=== PATIENT | male | born 1960 | race American Indian/Alaskan Native ===

== ENCOUNTER 2017-04-24 20:55 | Inpatient (IN) | payer OTHER ==
[2017-04-24] MEDS ORDERED: GEODON IM STA (21:07)
[2017-04-24] MEDS ORDERED: GEODON IM ONE (21:08)
--- NOTE | 2017-04-24 21:08 | Emergency Department Report ---
ED General Adult HPI - General Chief complaint: Weakness Stated complaint: ALTERED MENTAL STATUS Time Seen by Provider: 04/24/17 21:01 Source: family, EMS (ems notes not available at time of chart dictation), RN notes reviewed Limitations: Altered Mental Status, Physical Limitation - History of Present Illness Initial comments: This is a 56-year-old male who was previously known to this provider. Primary care doctor at the [facility]. The patient is currently on hospice with [facility]; [phone] Patient is altered and is unable to provide history. History is obtained by speaking to EMS and the patient's daughter, Ms. Maryjo Espinoza; [phone] As per the patient started, the patient has a history of esophageal cancer. He is currently DO NOT RESUSCITATE, DO NOT INTUBATE. He is brought to the hospital by EMS for altered mental status since yesterday. The symptoms are constant. They do not have exacerbating or relieving factors. They do not radiate anywhere. The patient's daughter indicates the patient was last seen normal yesterday. As per verbal report from EMS, there is a concern of accidental overdose. EMS indicated that they thought the patient took too much of his morphine, they indicated that they found the patient laying supine on his bed, with an initial [place] Coma Scale of 11, normal fingerstick, with constricted pupils. EMS gave 1 mg of Narcan, which resulted in the patient becoming more lucid. Patient then became slightly more lucid. In the ER, the patient is altered, moving extremities, and cannot describe exacerbating or relieving factors. He is not able to contribute to history. As per daughter, she does not think that the patient overdosed, but she is not certain. Patient did complain of abdominal pain at one point, but he cannot further describe this or elaborate on it. -: days(s) Consistency: constant Improves with: other (per hpi) Worsens with: other (per hpi) Associated Symptoms: confusion - Related Data Allergies Allergy/AdvReac Type Severity Reaction Status Date / Time No Known Allergies Allergy Verified 04/24/17 22:33 ED Review of Systems ROS: Stated complaint: ALTERED MENTAL STATUS Other details as noted in HPI Comment: Unobtainable due to pts medical conditions ED Physical Exam - General Limitations: Altered Mental Status General appearance: in distress - Head Head exam: Present: atraumatic, normocephalic - Eye Eye exam: Present: normal appearance, EOMI, other (b/l arcus senilis). Absent: nystagmus - ENT ENT exam: Present: mucous membranes dry - Neck Neck exam: Present: normal inspection, full ROM - Respiratory Respiratory exam: Present: normal lung sounds bilaterally. Absent: respiratory distress - Cardiovascular Cardiovascular Exam: Present: normal rhythm, tachycardia, normal heart sounds. Absent: systolic murmur, diastolic murmur, rubs, gallop - GI/Abdominal GI/Abdominal exam: Present: soft, normal bowel sounds. Absent: distended, tenderness, guarding, rebound, rigid, pulsatile mass - Rectal Rectal exam: Present: normal inspection - exam: Present: normal inspection - Extremities Exam Extremities exam: Present: normal inspection, full ROM. Absent: pedal edema, calf tenderness - Back Exam Back exam: Present: normal inspection, full ROM. Absent: paraspinal tenderness , vertebral tenderness - Neurological Exam Neurological exam: Present: alert, altered, other (patient moving 4 extremities. Patient follows some commands but not all commands. No facial droop. The tongue is midline. Patient speaking in partial sentences. Phonating normally. No stridor. Cranial nerves and sensory exam limited secondary to patient's altered mental status) - Psychiatric Psychiatric exam: Present: normal affect, normal mood - Skin Skin exam: Present: warm, dry, intact, normal color. Absent: rash ED Course Vital Signs 04/24/17 04/24/17 04/24/17 21:06 21:15 21:22 Temperature 98.1 F Pulse Rate 112 H 106 H 124 H Respiratory 20 19 20 Rate Blood Pressure 152/110 122/80 O2 Sat by Pulse 97 Oximetry 04/24/17 04/24/17 04/24/17 21:29 21:31 21:45 Temperature Pulse Rate 122 H 115 H Respiratory 22 28 H 16 Rate Blood Pressure 142/119 149/98 O2 Sat by Pulse 96 Oximetry 04/24/17 04/24/17 04/24/17 22:00 22:06 22:32 Temperature Pulse Rate 119 H 122 H Respiratory 25 H Rate Blood Pressure 155/98 155/98 O2 Sat by Pulse 99 97 Oximetry 04/24/17 04/24/17 04/24/17 22:45 23:00 23:03 Temperature Pulse Rate 146 H 141 H Respiratory 32 H 34 H Rate Blood Pressure 137/65 138/75 138/75 O2 Sat by Pulse 99 99 99 Oximetry 04/24/17 04/24/17 04/24/17 23:15 23:30 23:45 Temperature Pulse Rate 135 H 128 H 125 H Respiratory 29 H 26 H 23 Rate Blood Pressure 138/94 142/95 142/95 O2 Sat by Pulse 99 98 Oximetry 04/25/17 04/25/17 04/25/17 00:01 00:15 00:30 Temperature Pulse Rate 123 H 120 H 124 H Respiratory 28 H 29 H 25 H Rate Blood Pressure 142/95 142/95 141/93 O2 Sat by Pulse 98 97 98 Oximetry 04/25/17 04/25/17 04/25/17 00:45 01:00 01:15 Temperature Pulse Rate 129 H 130 H 130 H Respiratory 31 H 25 H 23 Rate Blood Pressure 141/93 142/98 142/98 O2 Sat by Pulse 98 98 98 Oximetry 04/25/17 04/25/17 04/25/17 01:30 01:45 02:00 Temperature Pulse Rate 128 H 129 H 129 H Respiratory 27 H 21 24 Rate Blood Pressure 139/98 139/98 135/93 O2 Sat by Pulse 98 96 Oximetry 04/25/17 04/25/17 04/25/17 02:15 02:30 02:45 Temperature Pulse Rate 127 H 127 H 127 H Respiratory 26 H 29 H 26 H Rate Blood Pressure 135/93 141/98 141/98 O2 Sat by Pulse 98 97 97 Oximetry 04/25/17 04/25/17 04/25/17 03:00 03:15 03:30 Temperature Pulse Rate 125 H 127 H 126 H Respiratory 21 30 H 30 H Rate Blood Pressure 141/97 141/97 135/96 O2 Sat by Pulse 97 98 97 Oximetry 04/25/17 04/25/17 04/25/17 03:45 04:00 04:15 Temperature Pulse Rate 124 H 126 H 124 H Respiratory 26 H 27 H 26 H Rate Blood Pressure 135/96 147/99 135/96 O2 Sat by Pulse 98 97 98 Oximetry - Reevaluation(s) Reevaluation #1: 04/24/17 22:43 Differential diagnosis, including but not limited to: Intracranial injury, cervical spine injury, small bowel obstruction, pneumonia, urinary tract infection, polysubstance overdose, accidental overdose Assessment and plan: 56-year-old male with altered mental status of unknown exact onset and duration. Patient is therefore not a TPA candidate for endovascular candidate given his unknown last well time. Objectively speaking his rectal temperature was 98.1, motor exam is nonfocal, blood pressure stable, x-ray of the chest negative, laboratory studies suggest urinary tract infection, hypothyroidism, and hypokalemia. Extensive discussion had with the patient's daughter. She reiterates the patient is DO NOT RESUSCITATE, DO NOT INTUBATE. However she is amenable to medical therapy for fluids and antibiotics. She also gives verbal permission over the phone for chemical sedation if the patient requires it. High doubt intentional overdose, therefore I will not place the patient at 1013. CT scan of the brain, cervical spine, abdomen and pelvis interpretation is pending at this time. Reevaluation #2: 04/24/17 23:06 Laboratory studies indicate lactic acidosis, hypercalcemia. Additional IV fluids ordered. Calcitonin 4 units per kilogram ordered. IV Pamidronate is ordered. Hospital physician is paged to arrange admission Reevaluation #3: 04/24/17 23:32 CT scan of the brain and cervical spine demonstrate no acute disease. CT scan of abdomen and pelvis to demonstrate findings consistent with patient's prior history of abdominal surgeries and known history of cancer malignancy. Reevaluation #4: 04/24/17 23:40 I have contacted the patient's hospice and discussed the case with nurse Rafat Mishra They will get back to me. Reevaluation #5: 04/24/17 23:52 Case is presented to the Hospital physician, Dr. Rhodes, who accepted the patient to the medical service - Consultations Consultation #1: 04/24/17 23:54 d/w executive services administrator Jai Ochoa of hospice. she will revoke hospice, and they can be re instated once patient has been medically optimized ED Medical Decision Making - Lab Data Result diagrams: 04/24/17 21:23 04/24/17 21:32 Vital Signs 04/24/17 04/24/17 04/24/17 21:06 21:15 21:22 Temperature 98.1 F Pulse Rate 112 H 106 H 124 H Respiratory 20 19 20 Rate Blood Pressure 152/110 122/80 O2 Sat by Pulse 97 Oximetry 04/24/17 04/24/17 04/24/17 21:29 21:31 21:45 Temperature Pulse Rate 122 H 115 H Respiratory 22 28 H 16 Rate Blood Pressure 142/119 149/98 O2 Sat by Pulse 96 Oximetry 04/24/17 04/24/17 22:00 22:06 Temperature Pulse Rate 119 H 122 H Respiratory 25 H Rate Blood Pressure 155/98 O2 Sat by Pulse 99 Oximetry Lab Results 04/24/17 04/24/17 04/24/17 Range/Units 21:23 21:23 21:23 WBC 11.4 H (4.5-11.0) K/mm3 RBC 4.12 (3.65-5.03) M/mm3 Hgb 10.7 L (11.8-15.2) gm/dl Hct 33.2 L (35.5-45.6) % MCV 81 L (84-94) fl MCH 26 L (28-32) pg MCHC 32 (32-34) % RDW 17.9 H (13.2-15.2) % Plt Count 374 (140-440) K/mm3 Lymph % (Auto) 15.9 (13.4-35.0) % Alexander % (Auto) 8.3 H (0.0-7.3) % Eos % (Auto) 0.9 (0.0-4.3) % Baso % (Auto) 0.2 (0.0-1.8) % Lymph # 1.8 (1.2-5.4) K/mm3 Alexander # 0.9 H (0.0-0.8) K/mm3 Eos # 0.1 (0.0-0.4) K/mm3 Baso # 0.0 (0.0-0.1) K/mm3 Seg Neutrophils % 74.7 H (40.0-70.0) % Seg Neutrophils # 8.5 H (1.8-7.7) K/mm3 PT (12.2-14.9) Sec. INR (0.87-1.13) APTT (24.2-36.6) Sec. Sodium (137-145) mmol/L Potassium (3.6-5.0) mmol/L Chloride (98-107) mmol/L Carbon Dioxide (22-30) mmol/L Anion Gap mmol/L BUN (9-20) mg/dL Creatinine (0.8-1.5) mg/dL Estimated GFR ml/min BUN/Creatinine Ratio % Glucose (75-100) mg/dL Magnesium (1.7-2.3) mg/dL Total Bilirubin (0.1-1.2) mg/dL AST (5-40) units/L ALT (7-56) units/L Alkaline Phosphatase (35-129) units/L Ammonia 36.0 (25-60) umol/L Total Creatine Kinase (55-170) units/L Troponin T (0.00-0.029) ng/mL Total Protein (6.3-8.2) g/dL Albumin (3.9-5) g/dL Albumin/Globulin Ratio % TSH (0.270-4.200) mlU/mL Urine Color (Yellow) Urine Turbidity (Clear) Urine pH (5.0-7.0) Ur Specific Dix (1.003-1.030) Urine Protein (Negative) mg/dL Urine Glucose (UA) (Negative) mg/dL Urine Ketones (Negative) mg/dL Urine Blood (Negative) Urine Nitrite (Negative) Urine Bilirubin (Negative) Urine Urobilinogen (<2.0) mg/dL Ur Leukocyte Esterase (Negative) Urine WBC (Auto) (0.0-6.0) /HPF Urine RBC (Auto) (0.0-6.0) /HPF U Epithel Cells (Auto) (0-13.0) /HPF Urine Bacteria (Auto) (Negative) /HPF Hyaline Casts /LPF Urine Mucus /HPF Salicylates (2.8-20.0) mg/dL Urine Methadone Screen Acetaminophen < 15.0 (10.0-30.0) ug/mL Ur Barbiturates Screen Ur Phencyclidine Scrn Ur Amphetamines Screen U Benzodiazepines Scrn Urine Cocaine Screen U Marijuana (THC) Screen Plasma/Serum Alcohol (0-0.07) gm% 04/24/17 04/24/17 04/24/17 Range/Units 21:23 21:29 21:29 WBC (4.5-11.0) K/mm3 RBC (3.65-5.03) M/mm3 Hgb (11.8-15.2) gm/dl Hct (35.5-45.6) % MCV (84-94) fl MCH (28-32) pg MCHC (32-34) % RDW (13.2-15.2) % Plt Count (140-440) K/mm3 Lymph % (Auto) (13.4-35.0) % Alexander % (Auto) (0.0-7.3) % Eos % (Auto) (0.0-4.3) % Baso % (Auto) (0.0-1.8) % Lymph # (1.2-5.4) K/mm3 Alexander # (0.0-0.8) K/mm3 Eos # (0.0-0.4) K/mm3 Baso # (0.0-0.1) K/mm3 Seg Neutrophils % (40.0-70.0) % Seg Neutrophils # (1.8-7.7) K/mm3 PT (12.2-14.9) Sec. INR (0.87-1.13) APTT (24.2-36.6) Sec. Sodium (137-145) mmol/L Potassium (3.6-5.0) mmol/L Chloride (98-107) mmol/L Carbon Dioxide (22-30) mmol/L Anion Gap mmol/L BUN (9-20) mg/dL Creatinine (0.8-1.5) mg/dL Estimated GFR ml/min BUN/Creatinine Ratio % Glucose (75-100) mg/dL Magnesium 1.90 (1.7-2.3) mg/dL Total Bilirubin (0.1-1.2) mg/dL AST (5-40) units/L ALT (7-56) units/L Alkaline Phosphatase (35-129) units/L Ammonia (25-60) umol/L Total Creatine Kinase 153 (55-170) units/L Troponin T (0.00-0.029) ng/mL Total Protein (6.3-8.2) g/dL Albumin (3.9-5) g/dL Albumin/Globulin Ratio % TSH 5.240 H (0.270-4.200) mlU/mL Urine Color (Yellow) Urine Turbidity (Clear) Urine pH (5.0-7.0) Ur Specific Dix (1.003-1.030) Urine Protein (Negative) mg/dL Urine Glucose (UA) (Negative) mg/dL Urine Ketones (Negative) mg/dL Urine Blood (Negative) Urine Nitrite (Negative) Urine Bilirubin (Negative) Urine Urobilinogen (<2.0) mg/dL Ur Leukocyte Esterase (Negative) Urine WBC (Auto) (0.0-6.0) /HPF Urine RBC (Auto) (0.0-6.0) /HPF U Epithel Cells (Auto) (0-13.0) /HPF Urine Bacteria (Auto) (Negative) /HPF Hyaline Casts /LPF Urine Mucus /HPF Salicylates < 0.3 L (2.8-20.0) mg/dL Urine Methadone Screen Acetaminophen (10.0-30.0) ug/mL Ur Barbiturates Screen Ur Phencyclidine Scrn Ur Amphetamines Screen U Benzodiazepines Scrn Urine Cocaine Screen U Marijuana (THC) Screen Plasma/Serum Alcohol (0-0.07) gm% 04/24/17 04/24/17 04/24/17 Range/Units 21:30 21:32 21:32 WBC (4.5-11.0) K/mm3 RBC (3.65-5.03) M/mm3 Hgb (11.8-15.2) gm/dl Hct (35.5-45.6) % MCV (84-94) fl MCH (28-32) pg MCHC (32-34) % RDW (13.2-15.2) % Plt Count (140-440) K/mm3 Lymph % (Auto) (13.4-35.0) % Alexander % (Auto) (0.0-7.3) % Eos % (Auto) (0.0-4.3) % Baso % (Auto) (0.0-1.8) % Lymph # (1.2-5.4) K/mm3 Alexander # (0.0-0.8) K/mm3 Eos # (0.0-0.4) K/mm3 Baso # (0.0-0.1) K/mm3 Seg Neutrophils % (40.0-70.0) % Seg Neutrophils # (1.8-7.7) K/mm3 PT 16.2 H (12.2-14.9) Sec. INR 1.24 H (0.87-1.13) APTT 26.4 (24.2-36.6) Sec. Sodium 132 L (137-145) mmol/L Potassium 3.2 L (3.6-5.0) mmol/L Chloride 93.5 L (98-107) mmol/L Carbon Dioxide 15 L (22-30) mmol/L Anion Gap 27 mmol/L BUN 32 H (9-20) mg/dL Creatinine 1.4 (0.8-1.5) mg/dL Estimated GFR > 60 ml/min BUN/Creatinine Ratio 23 % Glucose 137 H (75-100) mg/dL Magnesium (1.7-2.3) mg/dL Total Bilirubin 1.60 H (0.1-1.2) mg/dL AST 37 (5-40) units/L ALT 25 (7-56) units/L Alkaline Phosphatase 568 H (35-129) units/L Ammonia (25-60) umol/L Total Creatine Kinase 151 (55-170) units/L Troponin T < 0.010 (0.00-0.029) ng/mL Total Protein 7.5 (6.3-8.2) g/dL Albumin 3.6 L (3.9-5) g/dL Albumin/Globulin Ratio 0.9 % TSH (0.270-4.200) mlU/mL Urine Color (Yellow) Urine Turbidity (Clear) Urine pH (5.0-7.0) Ur Specific Dix (1.003-1.030) Urine Protein (Negative) mg/dL Urine Glucose (UA) (Negative) mg/dL Urine Ketones (Negative) mg/dL Urine Blood (Negative) Urine Nitrite (Negative) Urine Bilirubin (Negative) Urine Urobilinogen (<2.0) mg/dL Ur Leukocyte Esterase (Negative) Urine WBC (Auto) (0.0-6.0) /HPF Urine RBC (Auto) (0.0-6.0) /HPF U Epithel Cells (Auto) (0-13.0) /HPF Urine Bacteria (Auto) (Negative) /HPF Hyaline Casts /LPF Urine Mucus /HPF Salicylates (2.8-20.0) mg/dL Urine Methadone Screen Acetaminophen (10.0-30.0) ug/mL Ur Barbiturates Screen Ur Phencyclidine Scrn Ur Amphetamines Screen U Benzodiazepines Scrn Urine Cocaine Screen U Marijuana (THC) Screen Plasma/Serum Alcohol < 0.01 (0-0.07) gm% 04/24/17 04/24/17 Range/Units 22:06 22:06 WBC (4.5-11.0) K/mm3 RBC (3.65-5.03) M/mm3 Hgb (11.8-15.2) gm/dl Hct (35.5-45.6) % MCV (84-94) fl MCH (28-32) pg MCHC (32-34) % RDW (13.2-15.2) % Plt Count (140-440) K/mm3 Lymph % (Auto) (13.4-35.0) % Alexander % (Auto) (0.0-7.3) % Eos % (Auto) (0.0-4.3) % Baso % (Auto) (0.0-1.8) % Lymph # (1.2-5.4) K/mm3 Alexander # (0.0-0.8) K/mm3 Eos # (0.0-0.4) K/mm3 Baso # (0.0-0.1) K/mm3 Seg Neutrophils % (40.0-70.0) % Seg Neutrophils # (1.8-7.7) K/mm3 PT (12.2-14.9) Sec. INR (0.87-1.13) APTT (24.2-36.6) Sec. Sodium (137-145) mmol/L Potassium (3.6-5.0) mmol/L Chloride (98-107) mmol/L Carbon Dioxide (22-30) mmol/L Anion Gap mmol/L BUN (9-20) mg/dL Creatinine (0.8-1.5) mg/dL Estimated GFR ml/min BUN/Creatinine Ratio % Glucose (75-100) mg/dL Magnesium (1.7-2.3) mg/dL Total Bilirubin (0.1-1.2) mg/dL AST (5-40) units/L ALT (7-56) units/L Alkaline Phosphatase (35-129) units/L Ammonia (25-60) umol/L Total Creatine Kinase (55-170) units/L Troponin T (0.00-0.029) ng/mL Total Protein (6.3-8.2) g/dL Albumin (3.9-5) g/dL Albumin/Globulin Ratio % TSH (0.270-4.200) mlU/mL Urine Color Ora (Yellow) Urine Turbidity Clear (Clear) Urine pH 5.0 (5.0-7.0) Ur Specific Dix 1.021 (1.003-1.030) Urine Protein 100 mg/dl (Negative) mg/dL Urine Glucose (UA) Neg (Negative) mg/dL Urine Ketones Tr (Negative) mg/dL Urine Blood Sm (Negative) Urine Nitrite Neg (Negative) Urine Bilirubin Neg (Negative) Urine Urobilinogen 4.0 (<2.0) mg/dL Ur Leukocyte Esterase Neg (Negative) Urine WBC (Auto) 26.0 H (0.0-6.0) /HPF Urine RBC (Auto) 20.0 (0.0-6.0) /HPF U Epithel Cells (Auto) 1.0 (0-13.0) /HPF Urine Bacteria (Auto) 3+ (Negative) /HPF Hyaline Casts 3 /LPF Urine Mucus Few /HPF Salicylates (2.8-20.0) mg/dL Urine Methadone Screen Presumptive negative Acetaminophen (10.0-30.0) ug/mL Ur Barbiturates Screen Presumptive negative Ur Phencyclidine Scrn Presumptive negative Ur Amphetamines Screen Presumptive negative U Benzodiazepines Scrn Presumptive negative Urine Cocaine Screen Presumptive negative U Marijuana (THC) Screen Presumptive negative Plasma/Serum Alcohol (0-0.07) gm% - EKG Data -: EKG Interpreted by Me - EKG Data 04/24/17 22:45 Sinus tachycardia, 120 bpm, normal axis, QTC within normal limits, nonspecific ST depression, abnormal EKG, no prior for comparison, patient is not endorsing chest pain, therefore not morphologically consistent with ST elevation myocardial infarction - Radiology Data Radiology results: pending interpreted by me: X-ray of the chest negative. Right-sided thoracic wall port is noted. Right lower lobe atelectasis is noted. Critical care attestation.: If time is entered above; I have spent that time in minutes in the direct care of this critically ill patient, excluding procedure time. ED Disposition Clinical Impression: UTI (urinary tract infection), Encephalopathy, Hypercalcemia Disposition: OP ADMIT IP TO THIS HOSP Is pt being admited?: Yes Condition: Fair Referrals: PRIMARY CARE, [Primary Care Provider] - 3-5 Days
[2017-04-24] MEDS ORDERED: ZOFRAN ONE (21:43)
[2017-04-24] MEDS ORDERED: ZOFRAN IV ONE (21:46)
[2017-04-24 21:54] LABS: INR 1.24 (0.87-1.13); Partial Thromboplastin Time 26.4 Sec. (24.2-36.6)
[2017-04-24 22:02] LABS: Hematocrit 33.2 % (35.5-45.6); Hemoglobin 10.7 gm/dl (11.8-15.2); Mean Corpuscular HGB Conc 32 % (32-34); Mean Corpuscular Hemoglobin 26 pg (28-32); Mean Corpuscular Volume 81 fl (84-94); Red Blood Count 4.12 M/mm3 (3.65-5.03); White Blood Count 11.4 K/mm3 (4.5-11.0)
[2017-04-24 22:03] LABS: Basophils % (Auto) 0.2 % (0.0-1.8); Eosinophils % (Auto) 0.9 % (0.0-4.3); Platelet Count 374 K/mm3 (140-440); Red Cell Distribution Width 17.9 % (13.2-15.2)
[2017-04-24 22:09] LABS: Magnesium 1.9 mg/dL (1.7-2.3)
[2017-04-24 22:10] LABS: Alanine Aminotransferase 25 units/L (7-56); Albumin 3.6 g/dL (3.9-5); Albumin/Globulin Ratio 0.9 %; Alkaline Phosphatase 568 units/L (35-129); Anion Gap 27 mmol/L; BUN/Creatinine Ratio 23; Blood Urea Nitrogen 32 mg/dL (9-20); Carbon Dioxide 15 mmol/L (22-30); Chloride 93.5 mmol/L (98-107); Creatine Kinase 151 units/L (55-170); Glucose 137 mg/dL (75-100); Potassium 3.2 mmol/L (3.6-5.0); Sodium 132 mmol/L (137-145); Total Protein 7.5 g/dL (6.3-8.2)
[2017-04-24 22:15] LABS: Urine Drugs of Abuse Note Disclamer
[2017-04-24] MEDS ORDERED: ATIVAN IV ONE (22:18)
[2017-04-24] MEDS ORDERED: ATIVAN ONE (22:21)
[2017-04-24 22:29] LABS: Bacteria,Urine 3+ /HPF (Negative); Bilirubin,Urine NEG (Negative); Blood,Urine SM (Negative); Ketones,Urine TR mg/dL (Negative); Leukocyte Esterase,Urine NEG (Negative); Mucus,Urine FEW /HPF; Nitrite,Urine NEG (Negative)
--- NOTE | 2017-04-24 22:35 | Cat Scan Report ---
FINAL REPORT PROCEDURE: CT HEAD/BRAIN WO CON TECHNIQUE: Computerized tomography of the head was performed without contrast material. HISTORY: Altered Mental Status COMPARISON: No prior studies are available for comparison. FINDINGS: Image quality is degraded by motion artifact. The examination was repeated. Brain: Brain density appears normal. No evidence of intracranial hemorrhage. No parenchymal hemorrhage, mass lesions or mass effect are seen. No abnormal extraxial fluid collects or masses are seen. Ventricles: Ventricles are normal size and are midline. Bone Windows: No evidence of skull fracture. Paranasal sinuses: Minimal mucosal thickening seen inferiorly laterally right maxillary sinus. Visualized portions of the paranasal sinuses otherwise appear clear. Mastoid air cells: Clear IMPRESSION: Limited study due to motion artifact. No acute abnormalities are identified. If symptoms persist or worsen consider follow-up CT scan or MRI for further evaluation.
[2017-04-24] MEDS ORDERED: NACL 0.9% 1000 ML 1,000 ML IV ONE ×2 (22:38→23:02)
[2017-04-24] MEDS ORDERED: ROCEPHIN/NS 1 GM/50 ML 1 GM/50 ML BAG IV ONE (22:38)
[2017-04-24] MEDS ORDERED: cefTRIAXone 1 GM in NACL 0.9% 20 ML IV ONE (22:45)
--- NOTE | 2017-04-24 22:50 | Cat Scan Report ---
FINAL REPORT PROCEDURE: CT CERVICAL SPINE WO CON TECHNIQUE: Computerized tomography of the cervical spine was performed from the skull base to T1 without contrast material. HISTORY: Altered mental status. COMPARISON: No prior studies are available for comparison. FINDINGS: No fracture or subluxation is visualized. The prevertebral soft tissues appear normal. Posterior elements are intact C1-2: No significant abnormality. C2-3: No significant abnormality. C3-C4: No significant abnormality. C4-C5: The disc space is narrowed. Small anterior posterior osteophytic spurs are visualized. The posterior osteophytic spurs are visualized overlying mild disc bulge without focal disc herniation or spinal stenosis. Neural foramina appear adequate. C5-C6: Disc space narrowing visualized. Anterior posterior osteophytic spurring visualized. Posterior osteophytic spurs overlie a mild disc bulge without focal disc herniation or spinal stenosis. The neural foramina appear adequate.. C6-C7: Disc space narrowing visualized. Anterior posterior osteophytic spurring visualized overlying a mild disc bulge without focal disc herniation or spinal stenosis. Neural foramina appear adequate. C6-7: No significant abnormality. C7-T1: No significant abnormality. Other: No additional findings. IMPRESSION: Degenerative disc disease C4-C5 through C6-C7 as described. No focal disc herniation or spinal stenosis visualized. No evidence of fracture or subluxation..
[2017-04-24 23:00] LABS: Calcium > 13.0 mg/dL (8.4-10.2)
[2017-04-24] MEDS ORDERED: AREDIA 60 MG in NACL 0.9% 1000 ML 1,000 ML IV ONE (23:04)
--- NOTE | 2017-04-24 23:23 | Cat Scan Report ---
FINAL REPORT PROCEDURE: CT ABDOMEN PELVIS WO CON TECHNIQUE: Computerized axial tomography of the abdomen and pelvis was performed without intravenous contrast. This study is performed without intravascular contrast material and its sensitivity for abdominal and pelvic pathology, including neoplasms, inflammation, abscess, free fluid, thrombosis, arterial dissection and infarction, is reduced compared with a contrast enhanced study. HISTORY: abd pain COMPARISON: No prior studies are available for comparison. FINDINGS: Lower Lung montes: Bands of increased density seen in the right lung base suggesting atelectasis. No effusions are seen. Upper Abdomen: This exam is limited. There was no IV contrast given. There appear to be very large heterogeneous low-density masses in the right and left lobes of the liver, on the left measuring up to 11.0 x 14.0 centimeter and in the right lobe of the liver measuring 6.2 x 7.5 centimeters. There may be additional lesions present. Primary malignancy in the liver with daughter lesions may be present versus metastatic disease to the liver. Gallbladder showed no focal abnormalities. The intrahepatic ducts are not distended. Adrenal glands are mildly diffusely prominent and minimally nodular. I cannot exclude hyperplasia. The pancreas showed no focal abnormalities however posterior to the stomach and superior to the pancreas there is an oval nodular density seen measuring 2.5 x 2.9 centimeter on axial image 47 series 3 suggesting an enlarged lymph node or soft tissue mass in the retroperitoneum. The spleen does not appear to be enlarged. Kidneys, Ureters and Urinary bladder: Kidneys and ureter show no focal abnormalities. Urinary bladder is only partially filled and difficult to characterize. No gross abnormality is seen. Retroperitoneum: Atherosclerotic changes are seen in the abdominal aorta. No aneurysm is visualized. Nonspecific subcentimeter lymph nodes are seen in the retroperitoneum. No pathologically enlarged lymph nodes are identified. Bowel: There is an enteric suture line and a loop of small bowel in the mid abdomen. There is no evidence of bowel obstruction or ascites. No free intraperitoneal gas is visualized. Other: No acute bony abnormalities are visualized. Degenerative changes are visualized in the lumbar spine. IMPRESSION: Large heterogeneous masses with heterogeneous decreased density seen in the liver suggesting primary neoplasm of the liver with metastasis to the adjacent liver versus metastatic disease to the liver. No ascites is visualized. Postsurgical changes seen involving a loop of small bowel. No evidence of bowel obstruction. Bands of atelectasis visualized in the right lung base. Possible soft tissue mass or large lymph node from metastatic disease visualized posterior to the stomach and superior to the pancreas please see above image reference. Contrast-enhanced CT scan would be helpful for further characterization of these abnormalities.
[2017-04-24] MEDS: KCL 10 MEQ in NACL 0.9% 100 ML IV SCH (23:41)
[2017-04-24] MEDS: KCL 10MEQ/100ML 10 MEQ/100 ML BAG IV SCH (23:41)
[2017-04-24] MEDS ORDERED: MIACALCIN IM ONE (23:45)
[2017-04-25] MEDS: KCL 10 MEQ in NACL 0.9% 100 ML IV SCH (00:39)
[2017-04-25] MEDS: KCL 10MEQ/100ML 10 MEQ/100 ML BAG IV SCH (00:39)
--- NOTE | 2017-04-25 06:36 | History and Physical Report ---
History of Present Illness Chief complaint: confusion, weakness History of present illness: 56 YO Male with currently on Hospice service for Esophageal Cancer, Severe Malnutrition. Pt is DNR. Pt is unable to provide history, but history is taken from daughter over the phone. per daughter, pt had become increasingly confused and weak over the past 3 days, with worsening symptoms overnight. Pt was found by daughter to be more confused today. EMS was notified. Pt was found to be lethargic on exam and was treated with Narcan 1mg, with mild improvement in symptoms, and transported to [facility] for evaluation. Pt seen and evaluated in ED and found to have evidence of sepsis, and hypercalcemia. Pt has poor prognosis. Pt status discussed with daughter. Awaiting hospice revocation. Pt daughter states that she is unable to care for patient at home due to her job, and her current hospice company does not have any vacant beds in their inpatient facility. Hospice service notified. Pending receipt of revocation form so patient can be admitted for further care, if daughter decides. Pt daughter states that she has to notify other family members to get their input. The patient is currently on hospice with [facility]; [phone]. patient's daughter: Ms. Maryjo Espinoza; [phone] Past History Past Medical History: cancer, other (malnutrition) Past Surgical History: No surgical history (Unable to Obtain) Social history: single, lives with family. denies: smoking, alcohol abuse, prescription drug abuse Family history: no significant family history (reviewed) Medications and Allergies Allergies Allergy/AdvReac Type Severity Reaction Status Date / Time No Known Allergies Allergy Verified 04/24/17 22:33 Active Meds: Active Medications Pamidronate Disodium 60 mg/ (Sodium Chloride) 1,006.6667 mls @ 100 mls/hr IV ONCE.ED ONE Stop: 04/25/17 09:07 Last Admin: 04/25/17 00:19 Dose: 100 mls/hr Review of Systems ROS unobtainable: due to mental status Exam - Constitutional Vitals: Temp Pulse Resp BP Pulse Ox 98.1 F 120 H 19 141/100 98 04/24/17 21:22 04/25/17 06:15 04/25/17 06:15 04/25/17 06:15 04/25/17 06:15 General appearance: Present: severe distress - EENT Eyes: Present: PERRL ENT: hearing intact, clear oral mucosa - Neck Neck: Present: supple, normal ROM - Respiratory Respiratory effort: labored Respiratory: bilateral: diminished - Cardiovascular Heart Sounds: Present: S1 & S2. Absent: rub, click - Extremities Extremities: pulses symmetrical, No edema Peripheral Pulses: within normal limits - Abdominal General gastrointestinal: Present: soft, non-tender, non-distended, normal bowel sounds Male genitourinary: Present: normal - Integumentary Integumentary: Present: clear, dry, decreased turgor - Musculoskeletal Musculoskeletal: generalized weakness - Psychiatric Psychiatric: no intact judgment & insight, no memory intact - Neurologic Neurologic: no gait normal Results - Labs CBC & Chem 7: 04/24/17 21:23 04/24/17 21:32 Labs: Abnormal lab results 04/24/17 04/24/17 04/24/17 Range/Units 21:23 21:23 21:29 WBC 11.4 H (4.5-11.0) K/mm3 Hgb 10.7 L (11.8-15.2) gm/dl Hct 33.2 L (35.5-45.6) % MCV 81 L (84-94) fl MCH 26 L (28-32) pg RDW 17.9 H (13.2-15.2) % [place] % (Auto) 8.3 H (0.0-7.3) % [place] # 0.9 H (0.0-0.8) K/mm3 Seg Neutrophils % 74.7 H (40.0-70.0) % Seg Neutrophils # 8.5 H (1.8-7.7) K/mm3 PT (12.2-14.9) Sec. INR (0.87-1.13) Sodium (137-145) mmol/L Potassium (3.6-5.0) mmol/L Chloride (98-107) mmol/L Carbon Dioxide (22-30) mmol/L BUN (9-20) mg/dL Glucose (75-100) mg/dL Lactic Acid 4.30 H* (0.7-2.0) mmol/L Calcium (8.4-10.2) mg/dL Total Bilirubin (0.1-1.2) mg/dL Alkaline Phosphatase (35-129) units/L Albumin (3.9-5) g/dL TSH 5.240 H (0.270-4.200) mlU/mL Urine WBC (Auto) (0.0-6.0) /HPF Salicylates (2.8-20.0) mg/dL 04/24/17 04/24/17 04/24/17 Range/Units 21:29 21:32 21:32 WBC (4.5-11.0) K/mm3 Hgb (11.8-15.2) gm/dl Hct (35.5-45.6) % MCV (84-94) fl MCH (28-32) pg RDW (13.2-15.2) % [place] % (Auto) (0.0-7.3) % [place] # (0.0-0.8) K/mm3 Seg Neutrophils % (40.0-70.0) % Seg Neutrophils # (1.8-7.7) K/mm3 PT 16.2 H (12.2-14.9) Sec. INR 1.24 H (0.87-1.13) Sodium 132 L (137-145) mmol/L Potassium 3.2 L (3.6-5.0) mmol/L Chloride 93.5 L (98-107) mmol/L Carbon Dioxide 15 L (22-30) mmol/L BUN 32 H (9-20) mg/dL Glucose 137 H (75-100) mg/dL Lactic Acid (0.7-2.0) mmol/L Calcium > 13.0 H* (8.4-10.2) mg/dL Total Bilirubin 1.60 H (0.1-1.2) mg/dL Alkaline Phosphatase 568 H (35-129) units/L Albumin 3.6 L (3.9-5) g/dL TSH (0.270-4.200) mlU/mL Urine WBC (Auto) (0.0-6.0) /HPF Salicylates < 0.3 L (2.8-20.0) mg/dL 04/24/17 Range/Units 22:06 WBC (4.5-11.0) K/mm3 Hgb (11.8-15.2) gm/dl Hct (35.5-45.6) % MCV (84-94) fl MCH (28-32) pg RDW (13.2-15.2) % [place] % (Auto) (0.0-7.3) % [place] # (0.0-0.8) K/mm3 Seg Neutrophils % (40.0-70.0) % Seg Neutrophils # (1.8-7.7) K/mm3 PT (12.2-14.9) Sec. INR (0.87-1.13) Sodium (137-145) mmol/L Potassium (3.6-5.0) mmol/L Chloride (98-107) mmol/L Carbon Dioxide (22-30) mmol/L BUN (9-20) mg/dL Glucose (75-100) mg/dL Lactic Acid (0.7-2.0) mmol/L Calcium (8.4-10.2) mg/dL Total Bilirubin (0.1-1.2) mg/dL Alkaline Phosphatase (35-129) units/L Albumin (3.9-5) g/dL TSH (0.270-4.200) mlU/mL Urine WBC (Auto) 26.0 H (0.0-6.0) /HPF Salicylates (2.8-20.0) mg/dL Assessment and Plan - Patient Problems (1) Sepsis Current Visit: Yes Status: Acute Plan to address problem: IV abx, IVF, supportive care, blood cultures, urinalysis, monitor uop q shift. Poor prognosis discussed with daughter. Recommend discharge to hospice, but hospice does not have inpatient bed at this time, and patient daughter is unable to care for patient at home at this time. (2) Esophageal cancer Current Visit: Yes Status: Acute Plan to address problem: Pt currently on hospice service. Hospice service notified. Awaiting family decision, and open bed at hospice facility. Pain control, supportive care. (3) Severe malnutrition Current Visit: Yes Status: Acute Plan to address problem: Encourage oral intake when awake and alert only. (4) Encephalopathy Current Visit: Yes Status: Acute Plan to address problem: Toxic encephalopathy, supportie care, pain control. (5) DVT prophylaxis Current Visit: Yes Status: Acute
[2017-04-25] MEDS: MORPHINE IV PRN ×3 (06:56→18:19)
[2017-04-25] MEDS ORDERED: ZOFRAN IV PRN (07:11)
[2017-04-25] MEDS ORDERED: MILK OF MAGNESIA PO PRN (07:11)
[2017-04-25] MEDS ORDERED: TYLENOL PO PRN (07:11)
[2017-04-25] MEDS ORDERED: DULCOLAX PR PRN (07:11)
[2017-04-25] MEDS ORDERED: NACL 0.9% 1000 ML IV ONE (07:13)
[2017-04-25] MEDS ORDERED: VANCOMYCIN VIAL IV ONE (07:13)
[2017-04-25] MEDS ORDERED: VANCOMYCIN 1,250 MG in NACL 0.9% 250ML 250 ML IV SCH (08:00)
[2017-04-25] MEDS ORDERED: VANCOMYCIN PHARMACY TO DOSE IV SCH (08:00)
--- NOTE | 2017-04-25 10:22 | XRay Report ---
PORTABLE CHEST INDICATION: Altered mental status. COMPARISON: None similar at this institution. FINDINGS: Portable, frontal chest radiograph demonstrates atelectatic band at the right lung base. Approximately 2.6 cm right suprahilar nodule/mass. Right chest port tip in upper aspect of the right atrium. Normal cardiomediastinal silhouette. Unremarkable remainder lungs without significant pleural effusions or CHF. EKG leads. Slight bony degenerative changes. CONCLUSION: Right basilar atelectasis and right suprahilar mass in this patient with right-sided chest port, as described. Please correlate. Thank you for the opportunity to participate in this patient's care.
[2017-04-25] MEDS: ZOSYN/NS 4.5GM/100ML 4.5 GM/100 ML VIAL IV SCH ×2 (10:30→23:07)
[2017-04-25] MEDS ORDERED: D5/0.45NS 1,000 ML IV SCH ×2 (18:00)
[2017-04-26] MEDS: ZOSYN/NS 4.5GM/100ML 4.5 GM/100 ML VIAL IV SCH ×3 (05:44→21:13)
[2017-04-26] MEDS: VANCOMYCIN/NS 1 GM/250 ML 1 GM/250 ML BAG IV SCH (08:39)
[2017-04-26] MEDS: MORPHINE IV PRN ×2 (09:22→12:41)
--- NOTE | 2017-04-26 12:32 | Progress Note ---
Assessment and Plan Assessment and plan: Sepsis -Agent is being managed according to sepsis protocol with IV antibiotics and fluids Esophageal cancer - Patient was on hospice care, and the daughter said she is not able to take care of him so he may need inpatient hospice - Hospice care going to evaluate him Malnutrition - Nutrition consult, speech evaluation Acute metabolic encephalopathy - Supportive care, treat his underlying condition DVT prophylaxis -Lovenox Disposition - Continue inpatient care for the treatment of sepsis History Interval history: Patient was seen and evaluated this morning, patient is still confused. He said he has pain all over. He said he wants to Pee. The patient is on diaper per the nurse he has urine this morning and diaper was changed. Hospitalist Physical - Physical exam Narrative exam: Not in cardiopulmonary distress. The patient is cachectic and chronically sick looking. Vital signs as documented. Head exam is unremarkable. No scleral icterus . Neck is without jugular venous distension, thyromegaly, or carotid bruits. Lungs are clear to auscultation. Cardiac exam reveals regular rate and Rhythm. First and second heart sounds normal. No murmurs, rubs or gallops. Abdominal exam reveals normal bowel sounds, no masses, no organomegaly and no aortic enlargement. Extremities are nonedematous and both femoral and pedal pulses are normal. SENIOR ACCOUNT DIRECTOR: Confused. - Constitutional Vitals: Temp Pulse Resp BP Pulse Ox 98.5 F 117 H 19 139/99 98 04/26/17 07:07 04/26/17 07:07 04/26/17 07:07 04/26/17 07:07 04/26/17 07:07 General appearance: Present: severe distress Results - Labs CBC & Chem 7: 04/24/17 21:23 04/24/17 21:32 Labs: Laboratory Last Values WBC 11.4 K/mm3 (4.5-11.0) H 04/24/17 21:23 RBC 4.12 M/mm3 (3.65-5.03) 04/24/17 21:23 Hgb 10.7 gm/dl (11.8-15.2) L 04/24/17 21:23 Hct 33.2 % (35.5-45.6) L 04/24/17 21:23 MCV 81 fl (84-94) L 04/24/17 21:23 MCH 26 pg (28-32) L 04/24/17 21:23 MCHC 32 % (32-34) 04/24/17 21:23 RDW 17.9 % (13.2-15.2) H 04/24/17 21:23 Plt Count 374 K/mm3 (140-440) 04/24/17 21:23 Lymph % (Auto) 15.9 % (13.4-35.0) 04/24/17 21:23 [place] % (Auto) 8.3 % (0.0-7.3) H 04/24/17 21:23 Eos % (Auto) 0.9 % (0.0-4.3) 04/24/17 21:23 Baso % (Auto) 0.2 % (0.0-1.8) 04/24/17 21: Lymph # 1.8 K/mm3 (1.2-5.4) 04/24/17 21:23 [place] # 0.9 K/mm3 (0.0-0.8) H 04/24/17 21:23 Eos # 0.1 K/mm3 (0.0-0.4) 04/24/17 21:23 Baso # 0.0 K/mm3 (0.0-0.1) 04/24/17 21:23 Seg Neutrophils % 74.7 % (40.0-70.0) H 04/24/17 21:23 Seg Neutrophils # 8.5 K/mm3 (1.8-7.7) H 04/24/17 21:23 PT 16.2 Sec. (12.2-14.9) H 04/24/17 21:32 INR 1.24 (0.87-1.13) H 04/24/17 21:32 APTT 26.4 Sec. (24.2-36.6) 04/24/17 21:32 Sodium 132 mmol/L (137-145) L 04/24/17 21:32 Potassium 3.2 mmol/L (3.6-5.0) L 04/24/17 21:32 Chloride 93.5 mmol/L (98-107) L 04/24/17 21:32 Carbon Dioxide 15 mmol/L (22-30) L 04/24/17 21:32 Anion Gap 27 mmol/L 04/24/17 21:32 BUN 32 mg/dL (9-20) H 04/24/17 21:32 Creatinine 1.4 mg/dL (0.8-1.5) 04/24/17 21:32 Estimated GFR > 60 ml/min 04/24/17 21:32 BUN/Creatinine Ratio 23 % 04/24/17 21:32 Glucose 137 mg/dL (75-100) H 04/24/17 21:32 POC Glucose 135 (70-105) H 04/25/17 10:33 Lactic Acid 2.50 mmol/L (0.7-2.0) H* 04/25/17 14:14 Calcium > 13.0 mg/dL (8.4-10.2) H* 04/24/17 21:32 Magnesium 1.90 mg/dL (1.7-2.3) 04/24/17 21:23 Total Bilirubin 1.60 mg/dL (0.1-1.2) H 04/24/17 21:32 AST 37 units/L (5-40) 04/24/17 21:32 ALT 25 units/L (7-56) 04/24/17 21:32 Alkaline Phosphatase 568 units/L (35-129) H 04/24/17 21:32 Ammonia 36.0 umol/L (25-60) 04/24/17 21:23 Total Creatine Kinase 151 units/L (55-170) 04/24/17 21:32 Troponin T < 0.010 ng/mL (0.00-0.029) 04/24/17 21:32 Total Protein 7.5 g/dL (6.3-8.2) 04/24/17 21:32 Albumin 3.6 g/dL (3.9-5) L 04/24/17 21:32 Albumin/Globulin Ratio 0.9 % 04/24/17 21:32 TSH 5.240 mlU/mL (0.270-4.200) H 04/24/17 21:29 Urine Color Ora (Yellow) 04/24/17 22:06 Urine Turbidity Clear (Clear) 04/24/17 22:06 Urine pH 5.0 (5.0-7.0) 04/24/17 22:06 Ur Specific [place] 1.021 (1.003-1.030) 04/24/17 22:06 Urine Protein 100 mg/dl mg/dL (Negative) 04/24/17 22:06 Urine Glucose (UA) Neg mg/dL (Negative) 04/24/17 22:06 Urine Ketones Tr mg/dL (Negative) 04/24/17 22:06 Urine Blood Sm (Negative) 04/24/17 22:06 Urine Nitrite Neg (Negative) 04/24/17 22:06 Urine Bilirubin Neg (Negative) 04/24/17 22:06 Urine Urobilinogen 4.0 mg/dL (<2.0) 04/24/17 22:06 Ur Leukocyte Esterase Neg (Negative) 04/24/17 22:06 Urine WBC (Auto) 26.0 /HPF (0.0-6.0) H 04/24/17 22:06 Urine RBC (Auto) 20.0 /HPF (0.0-6.0) 04/24/17 22:06 U Epithel Cells (Auto) 1.0 /HPF (0-13.0) 04/24/17 22:06 Urine Bacteria (Auto) 3+ /HPF (Negative) 04/24/17 22:06 Hyaline Casts 3 /LPF 04/24/17 22:06 Urine Mucus Few /HPF 04/24/17 22:06 Salicylates < 0.3 mg/dL (2.8-20.0) L 04/24/17 21:29 Urine Opiates Screen Presumptive positive 04/24/17 22:06 Urine Methadone Screen Presumptive negative 04/24/17 22:06 Acetaminophen < 15.0 ug/mL (10.0-30.0) 04/24/17 21:23 Ur Barbiturates Screen Presumptive negative 04/24/17 22:06 Ur Phencyclidine Scrn Presumptive negative 04/24/17 22:06 Ur Amphetamines Screen Presumptive negative 04/24/17 22:06 U Benzodiazepines Scrn Presumptive negative 04/24/17 22:06 Urine Cocaine Screen Presumptive negative 04/24/17 22:06 U Marijuana (THC) Screen Presumptive negative 04/24/17 22:06 Drugs of Abuse Note Disclamer 04/24/17 22:06 Plasma/Serum Alcohol < 0.01 gm% (0-0.07) 04/24/17 21:30
[2017-04-26] MEDS: DILAUDID IV PRN ×2 (14:29→21:08)
[2017-04-26 14:50] LABS: Basophils % (Auto) 0.3 % (0.0-1.8); Eosinophils % (Auto) 1.2 % (0.0-4.3); Hematocrit 32.5 % (35.5-45.6); Hemoglobin 10.4 gm/dl (11.8-15.2); Mean Corpuscular HGB Conc 32 % (32-34); Mean Corpuscular Volume 81 fl (84-94); Platelet Count 339 K/mm3 (140-440); Red Blood Count 4.01 M/mm3 (3.65-5.03); Red Cell Distribution Width 17.8 % (13.2-15.2); White Blood Count 9.5 K/mm3 (4.5-11.0)
[2017-04-26 14:53] LABS: Mean Corpuscular Hemoglobin 26 pg (28-32)
[2017-04-26 15:05] LABS: Anion Gap 19 mmol/L; BUN/Creatinine Ratio 19; Blood Urea Nitrogen 21 mg/dL (9-20); Carbon Dioxide 19 mmol/L (22-30); Chloride 101.3 mmol/L (98-107); Glucose 128 mg/dL (75-100); Potassium 3.5 mmol/L (3.6-5.0); Sodium 136 mmol/L (137-145)
[2017-04-26 15:16] LABS: Calcium 12.9 mg/dL (8.4-10.2)
[2017-04-26] MEDS: D5/0.45NS 2,000 ML IV SCH (16:51)
[2017-04-26] MEDS: LOVENOX SUB-Q SCH (21:08)
[2017-04-27] MEDS: DILAUDID IV PRN ×4 (04:51→20:54)
[2017-04-27 06:04] LABS: Anion Gap 20 mmol/L; BUN/Creatinine Ratio 17; Blood Urea Nitrogen 17 mg/dL (9-20); Carbon Dioxide 20 mmol/L (22-30); Chloride 105.6 mmol/L (98-107); Glucose 109 mg/dL (75-100); Sodium 143 mmol/L (137-145)
[2017-04-27 06:05] LABS: Basophils % (Auto) 0.1 % (0.0-1.8); Eosinophils % (Auto) 0.9 % (0.0-4.3); Hematocrit 31.7 % (35.5-45.6); Hemoglobin 9.9 gm/dl (11.8-15.2); Mean Corpuscular HGB Conc 31 % (32-34); Mean Corpuscular Volume 80 fl (84-94); Platelet Count 341 K/mm3 (140-440); Red Blood Count 3.98 M/mm3 (3.65-5.03); Red Cell Distribution Width 17.9 % (13.2-15.2)
[2017-04-27 06:07] LABS: Mean Corpuscular Hemoglobin 25 pg (28-32)
[2017-04-27] MEDS: ZOSYN/NS 4.5GM/100ML 4.5 GM/100 ML VIAL IV SCH ×3 (06:13→21:20)
[2017-04-27 06:37] LABS: Calcium > 13.0 mg/dL (8.4-10.2)
[2017-04-27] MEDS ORDERED: POTASSIUM CHLORIDE FEEDTUBE ONE (09:00)
[2017-04-27] MEDS: D5/0.45NS 2,000 ML IV SCH ×2 (09:11→20:55)
[2017-04-27] MEDS: VANCOMYCIN/NS 1 GM/250 ML 1 GM/250 ML BAG IV SCH ×3 (09:12→23:50)
[2017-04-27] MEDS: MS CONTIN ER PO SCH ×2 (11:11→21:17)
[2017-04-27 11:48] LABS: Anion Gap 17 mmol/L; BUN/Creatinine Ratio 15; Blood Urea Nitrogen 17 mg/dL (9-20); Carbon Dioxide 21 mmol/L (22-30); Chloride 106.7 mmol/L (98-107); Glucose 119 mg/dL (75-100); Potassium 3.8 mmol/L (3.6-5.0); Sodium 141 mmol/L (137-145)
[2017-04-27 12:04] LABS: Calcium > 13.0 mg/dL (8.4-10.2)
--- NOTE | 2017-04-27 12:48 | Progress Note ---
Assessment and Plan Assessment and plan: EKG on -[place] male with past medical history significant for esophageal cancer on hospice care was admitted for the management of sepsis Sepsis - Patient is on IV antibiotics and IV fluids - Lactic acid is going up - No significant improvement - He is a hospice patient and if his daughter agrees we can send him to [facility] with [facility] and can finish his antibiotics Esophageal cancer - Patient was on hospice care, and the daughter said she will take him home. Malnutrition - Nutrition consult, speech evaluation Acute metabolic encephalopathy - Supportive care, treat his underlying condition Hypercalcemia - due malignancy - Increase IV fluid to DVT prophylaxis -Lovenox Disposition - Continue inpatient care for the treatment of sepsis - Possible discharge to SNF with hospice care. History Interval history: Patient does complaining pain, he is on Dilaudid and MS Ruba added this morning. Hospitalist Physical - Physical exam Narrative exam: Not in cardiopulmonary distress. The patient is cachectic and chronically sick looking. Vital signs as documented. Head exam is unremarkable. No scleral icterus . Neck is without jugular venous distension, thyromegaly, or carotid bruits. Lungs are clear to auscultation. Cardiac exam reveals regular rate and Rhythm. First and second heart sounds normal. No murmurs, rubs or gallops. Abdominal exam reveals normal bowel sounds, no masses, no organomegaly and no aortic enlargement. Extremities are nonedematous and both femoral and pedal pulses are normal. INSURANCE CODER: Alert. - Constitutional Vitals: Temp Pulse Resp BP Pulse Ox 98.4 F 107 H 18 133/94 99 04/27/17 00:12 04/27/17 00:12 04/27/17 04:51 04/27/17 00:20 04/27/17 00:12 General appearance: Present: severe distress Results - Labs CBC & Chem 7: 04/27/17 04:48 04/27/17 11:06 Labs: Laboratory Last Values WBC 11.0 K/mm3 (4.5-11.0) 04/27/17 04:48 RBC 3.98 M/mm3 (3.65-5.03) 04/27/17 04:48 Hgb 9.9 gm/dl (11.8-15.2) L 04/27/17 04:48 Hct 31.7 % (35.5-45.6) L 04/27/17 04:48 MCV 80 fl (84-94) L 04/27/17 04:48 MCH 25 pg (28-32) L 04/27/17 04:48 MCHC 31 % (32-34) L 04/27/17 04:48 RDW 17.9 % (13.2-15.2) H 04/27/17 04:48 Plt Count 341 K/mm3 (140-440) 04/27/17 04:48 Lymph % (Auto) 7.2 % (13.4-35.0) L 04/27/17 04:48 [place] % (Auto) 7.2 % (0.0-7.3) 04/27/17 04:48 Eos % (Auto) 0.9 % (0.0-4.3) 04/27/17 04:48 Baso % (Auto) 0.1 % (0.0-1.8) 04/27/17 04:48 Lymph # 0.8 K/mm3 (1.2-5.4) L 04/27/17 04:48 [place] # 0.8 K/mm3 (0.0-0.8) 04/27/17 04:48 Eos # 0.1 K/mm3 (0.0-0.4) 04/27/17 04:48 Baso # 0.0 K/mm3 (0.0-0.1) 04/27/17 04:48 Seg Neutrophils % 84.6 % (40.0-70.0) H 04/27/17 04:48 Seg Neutrophils # 9.3 K/mm3 (1.8-7.7) H 04/27/17 04:48 PT 16.2 Sec. (12.2-14.9) H 04/24/17 21:32 INR 1.24 (0.87-1.13) H 04/24/17 21:32 APTT 26.4 Sec. (24.2-36.6) 04/24/17 21:32 Sodium 141 mmol/L (137-145) 04/27/17 11:06 Potassium 3.8 mmol/L (3.6-5.0) D 04/27/17 11:06 Chloride 106.7 mmol/L (98-107) 04/27/17 11:06 Carbon Dioxide 21 mmol/L (22-30) L 04/27/17 11:06 Anion Gap 17 mmol/L 04/27/17 11:06 BUN 17 mg/dL (9-20) 04/27/17 11:06 Creatinine 1.1 mg/dL (0.8-1.5) 04/27/17 11:06 Estimated GFR > 60 ml/min 04/27/17 11:06 BUN/Creatinine Ratio 15 % 04/27/17 11:06 Glucose 119 mg/dL (75-100) H 04/27/17 11:06 POC Glucose 135 (70-105) H 04/25/17 10:33 Lactic Acid 3.30 mmol/L (0.7-2.0) H* 04/27/17 11:06 Calcium > 13.0 mg/dL (8.4-10.2) H* 04/27/17 11:06 Magnesium 1.60 mg/dL (1.7-2.3) L 04/27/17 11:06 Total Bilirubin 1.60 mg/dL (0.1-1.2) H 04/24/17 21:32 AST 37 units/L (5-40) 04/24/17 21:32 ALT 25 units/L (7-56) 04/24/17 21:32 Alkaline Phosphatase 568 units/L (35-129) H 04/24/17 21:32 Ammonia 36.0 umol/L (25-60) 04/24/17 21:23 Total Creatine Kinase 151 units/L (55-170) 04/24/17 21:32 Troponin T < 0.010 ng/mL (0.00-0.029) 04/24/17 21:32 Total Protein 7.5 g/dL (6.3-8.2) 04/24/17 21:32 Albumin 3.6 g/dL (3.9-5) L 04/24/17 21:32 Albumin/Globulin Ratio 0.9 % 04/24/17 21:32 TSH 5.240 mlU/mL (0.270-4.200) H 04/24/17 21:29 Urine Color Ora (Yellow) 04/24/17 22:06 Urine Turbidity Clear (Clear) 04/24/17 22:06 Urine pH 5.0 (5.0-7.0) 04/24/17 22:06 Ur Specific [place] 1.021 (1.003-1.030) 04/24/17 22:06 Urine Protein 100 mg/dl mg/dL (Negative) 04/24/17 22:06 Urine Glucose (UA) Neg mg/dL (Negative) 04/24/17 22:06 Urine Ketones Tr mg/dL (Negative) 04/24/17 22:06 Urine Blood Sm (Negative) 04/24/17 22:06 Urine Nitrite Neg (Negative) 04/24/17 22:06 Urine Bilirubin Neg (Negative) 04/24/17 22:06 Urine Urobilinogen 4.0 mg/dL (<2.0) 04/24/17 22:06 Ur Leukocyte Esterase Neg (Negative) 04/24/17 22:06 Urine WBC (Auto) 26.0 /HPF (0.0-6.0) H 04/24/17 22:06 Urine RBC (Auto) 20.0 /HPF (0.0-6.0) 04/24/17 22:06 U Epithel Cells (Auto) 1.0 /HPF (0-13.0) 04/24/17 22:06 Urine Bacteria (Auto) 3+ /HPF (Negative) 04/24/17 22:06 Hyaline Casts 3 /LPF 04/24/17 22:06 Urine Mucus Few /HPF 04/24/17 22:06 Salicylates < 0.3 mg/dL (2.8-20.0) L 04/24/17 21:29 Urine Opiates Screen Presumptive positive 04/24/17 22:06 Urine Methadone Screen Presumptive negative 04/24/17 22:06 Acetaminophen < 15.0 ug/mL (10.0-30.0) 04/24/17 21:23 Ur Barbiturates Screen Presumptive negative 04/24/17 22:06 Ur Phencyclidine Scrn Presumptive negative 04/24/17 22:06 Ur Amphetamines Screen Presumptive negative 04/24/17 22:06 U Benzodiazepines Scrn Presumptive negative 04/24/17 22:06 Urine Cocaine Screen Presumptive negative 04/24/17 22:06 U Marijuana (THC) Screen Presumptive negative 04/24/17 22:06 Drugs of Abuse Note Disclamer 04/24/17 22:06 Plasma/Serum Alcohol < 0.01 gm% (0-0.07) 04/24/17 21:30 Hypercalcemia
[2017-04-27] MEDS: LOVENOX SUB-Q SCH (21:16)
[2017-04-28] MEDS: DILAUDID IV PRN ×5 (03:18→20:35)
[2017-04-28 05:57] LABS: Anion Gap 20 mmol/L; BUN/Creatinine Ratio 13; Blood Urea Nitrogen 13 mg/dL (9-20); Carbon Dioxide 20 mmol/L (22-30); Chloride 104.7 mmol/L (98-107); Glucose 122 mg/dL (75-100); Potassium 3.3 mmol/L (3.6-5.0); Sodium 141 mmol/L (137-145)
[2017-04-28] MEDS: D5/0.45NS 2,000 ML IV SCH ×2 (06:06→17:44)
[2017-04-28] MEDS: ZOSYN/NS 4.5GM/100ML 4.5 GM/100 ML VIAL IV SCH ×3 (06:06→22:59)
[2017-04-28 07:02] LABS: Calcium 12.8 mg/dL (8.4-10.2)
[2017-04-28] MEDS: MS CONTIN ER PO SCH ×2 (09:25→22:49)
[2017-04-28] MEDS: VANCOMYCIN/NS 1 GM/250 ML 1 GM/250 ML BAG IV SCH ×2 (09:27→23:00)
[2017-04-28] MEDS ORDERED: K-DUR PO ONE (10:58)
--- NOTE | 2017-04-28 11:00 | Progress Note ---
Assessment and Plan Assessment and plan: 56 old -Gabonese male with past medical history significant for esophageal cancer on hospice care was admitted for the management of sepsis Sepsis - Patient is on IV antibiotics and IV fluids - Lactic acid is going up - No significant improvement - He is a hospice patient and if his daughter agrees we can send him to longterm with hospice and can finish his antibiotics Esophageal cancer - Patient was on hospice care, and the daughter said she will take him home. Malnutrition - Nutrition consult, speech evaluation Acute metabolic encephalopathy - Supportive care, treat his underlying condition Hypercalcemia - due malignancy - continue with IV fluids DVT prophylaxis -Lovenox Disposition - Continue inpatient care for the treatment of sepsis - Possible discharge to SNF with hospice care. Prognosis - poor CodeStatus - DO NOT RESUSCITATE/DO NOT INTUBATE History Interval history: Patient is complaining pain, patient is on MS Contin and Dilaudid. Hospitalist Physical - Physical exam Narrative exam: Not in cardiopulmonary distress. The patient is cachectic and chronically sick looking. Vital signs as documented. Head exam is unremarkable. No scleral icterus . Neck is without jugular venous distension, thyromegaly, or carotid bruits. Lungs are clear to auscultation. Cardiac exam reveals regular rate and Rhythm. First and second heart sounds normal. No murmurs, rubs or gallops. Abdominal exam reveals normal bowel sounds, no masses, no organomegaly and no aortic enlargement. Extremities are nonedematous and both femoral and pedal pulses are normal. BOX BLANK MACHINE OPERATOR: Alert. - Constitutional Vitals: Temp Pulse Resp BP Pulse Ox 98.4 F 102 H 20 109/77 98 04/28/17 08:20 04/28/17 08:20 04/28/17 08:20 04/28/17 08:20 04/28/17 10:00 General appearance: Present: severe distress Results - Labs CBC & Chem 7: 04/27/17 04:48 04/28/17 05:17 Labs: Laboratory Last Values WBC 11.0 K/mm3 (4.5-11.0) 04/27/17 04:48 RBC 3.98 M/mm3 (3.65-5.03) 04/27/17 04:48 Hgb 9.9 gm/dl (11.8-15.2) L 04/27/17 04:48 Hct 31.7 % (35.5-45.6) L 04/27/17 04:48 MCV 80 fl (84-94) L 04/27/17 04:48 MCH 25 pg (28-32) L 04/27/17 04:48 MCHC 31 % (32-34) L 04/27/17 04:48 RDW 17.9 % (13.2-15.2) H 04/27/17 04:48 Plt Count 341 K/mm3 (140-440) 04/27/17 04:48 Lymph % (Auto) 7.2 % (13.4-35.0) L 04/27/17 04:48 [place] % (Auto) 7.2 % (0.0-7.3) 04/27/17 04:48 Eos % (Auto) 0.9 % (0.0-4.3) 04/27/17 04:48 Baso % (Auto) 0.1 % (0.0-1.8) 04/27/17 04:48 Lymph # 0.8 K/mm3 (1.2-5.4) L 04/27/17 04:48 [place] # 0.8 K/mm3 (0.0-0.8) 04/27/17 04:48 Eos # 0.1 K/mm3 (0.0-0.4) 04/27/17 04:48 Baso # 0.0 K/mm3 (0.0-0.1) 04/27/17 04:48 Seg Neutrophils % 84.6 % (40.0-70.0) H 04/27/17 04:48 Seg Neutrophils # 9.3 K/mm3 (1.8-7.7) H 04/27/17 04:48 PT 16.2 Sec. (12.2-14.9) H 04/24/17 21:32 INR 1.24 (0.87-1.13) H 04/24/17 21:32 APTT 26.4 Sec. (24.2-36.6) 04/24/17 21:32 Sodium 141 mmol/L (137-145) 04/28/17 05:17 Potassium 3.3 mmol/L (3.6-5.0) L 04/28/17 05:17 Chloride 104.7 mmol/L (98-107) 04/28/17 05:17 Carbon Dioxide 20 mmol/L (22-30) L 04/28/17 05:17 Anion Gap 20 mmol/L 04/28/17 05:17 BUN 13 mg/dL (9-20) 04/28/17 05:17 Creatinine 1.0 mg/dL (0.8-1.5) 04/28/17 05:17 Estimated GFR > 60 ml/min 04/28/17 05:17 BUN/Creatinine Ratio 13 % 04/28/17 05:17 Glucose 122 mg/dL (75-100) H 04/28/17 05:17 POC Glucose 119 (70-105) H 04/28/17 06:21 Lactic Acid 2.50 mmol/L (0.7-2.0) H* 04/28/17 05:17 Calcium 12.8 mg/dL (8.4-10.2) H* 04/28/17 05:17 Magnesium 1.60 mg/dL (1.7-2.3) L 04/27/17 11:06 Total Bilirubin 1.60 mg/dL (0.1-1.2) H 04/24/17 21:32 AST 37 units/L (5-40) 04/24/17 21:32 ALT 25 units/L (7-56) 04/24/17 21:32 Alkaline Phosphatase 568 units/L (35-129) H 04/24/17 21:32 Ammonia 36.0 umol/L (25-60) 04/24/17 21:23 Total Creatine Kinase 151 units/L (55-170) 04/24/17 21:32 Troponin T < 0.010 ng/mL (0.00-0.029) 04/24/17 21:32 Total Protein 7.5 g/dL (6.3-8.2) 04/24/17 21:32 Albumin 3.6 g/dL (3.9-5) L 04/24/17 21:32 Albumin/Globulin Ratio 0.9 % 04/24/17 21:32 TSH 5.240 mlU/mL (0.270-4.200) H 04/24/17 21:29 Urine Color Ora (Yellow) 04/24/17 22:06 Urine Turbidity Clear (Clear) 04/24/17 22:06 Urine pH 5.0 (5.0-7.0) 04/24/17 22:06 Ur Specific [place] 1.021 (1.003-1.030) 04/24/17 22:06 Urine Protein 100 mg/dl mg/dL (Negative) 04/24/17 22:06 Urine Glucose (UA) Neg mg/dL (Negative) 04/24/17 22:06 Urine Ketones Tr mg/dL (Negative) 04/24/17 22:06 Urine Blood Sm (Negative) 04/24/17 22:06 Urine Nitrite Neg (Negative) 04/24/17 22:06 Urine Bilirubin Neg (Negative) 04/24/17 22:06 Urine Urobilinogen 4.0 mg/dL (<2.0) 04/24/17 22:06 Ur Leukocyte Esterase Neg (Negative) 04/24/17 22:06 Urine WBC (Auto) 26.0 /HPF (0.0-6.0) H 04/24/17 22:06 Urine RBC (Auto) 20.0 /HPF (0.0-6.0) 04/24/17 22:06 U Epithel Cells (Auto) 1.0 /HPF (0-13.0) 04/24/17 22:06 Urine Bacteria (Auto) 3+ /HPF (Negative) 04/24/17 22:06 Hyaline Casts 3 /LPF 04/24/17 22:06 Urine Mucus Few /HPF 04/24/17 22:06 Salicylates < 0.3 mg/dL (2.8-20.0) L 04/24/17 21:29 Urine Opiates Screen Presumptive positive 04/24/17 22:06 Urine Methadone Screen Presumptive negative 04/24/17 22:06 Acetaminophen < 15.0 ug/mL (10.0-30.0) 04/24/17 21:23 Ur Barbiturates Screen Presumptive negative 04/24/17 22:06 Ur Phencyclidine Scrn Presumptive negative 04/24/17 22:06 Ur Amphetamines Screen Presumptive negative 04/24/17 22:06 U Benzodiazepines Scrn Presumptive negative 04/24/17 22:06 Urine Cocaine Screen Presumptive negative 04/24/17 22:06 U Marijuana (THC) Screen Presumptive negative 04/24/17 22:06 Drugs of Abuse Note Disclamer 04/24/17 22:06 Plasma/Serum Alcohol < 0.01 gm% (0-0.07) 04/24/17 21:30
[2017-04-28] MEDS: LOVENOX SUB-Q SCH (22:52)
[2017-04-29] MEDS: DILAUDID IV PRN ×7 (00:13→22:51)
[2017-04-29 04:54] LABS: Basophils % (Auto) 0.5 % (0.0-1.8); Eosinophils % (Auto) 2.3 % (0.0-4.3); Hematocrit 29.6 % (35.5-45.6); Hemoglobin 9.5 gm/dl (11.8-15.2); Mean Corpuscular HGB Conc 32 % (32-34); Mean Corpuscular Volume 81 fl (84-94); Platelet Count 269 K/mm3 (140-440); Red Blood Count 3.66 M/mm3 (3.65-5.03); Red Cell Distribution Width 17.4 % (13.2-15.2); White Blood Count 9.2 K/mm3 (4.5-11.0)
[2017-04-29 04:55] LABS: Mean Corpuscular Hemoglobin 26 pg (28-32)
[2017-04-29 05:02] LABS: Anion Gap 17 mmol/L; BUN/Creatinine Ratio 9; Blood Urea Nitrogen 9 mg/dL (9-20); Carbon Dioxide 20 mmol/L (22-30); Chloride 101.9 mmol/L (98-107); Glucose 97 mg/dL (75-100); Potassium 3.2 mmol/L (3.6-5.0); Sodium 136 mmol/L (137-145)
[2017-04-29 05:17] LABS: Calcium 12.6 mg/dL (8.4-10.2)
[2017-04-29] MEDS: ZOSYN/NS 4.5GM/100ML 4.5 GM/100 ML VIAL IV SCH ×3 (05:49→22:51)
[2017-04-29] MEDS: MS CONTIN ER PO SCH ×2 (11:12→22:50)
[2017-04-29] MEDS: VANCOMYCIN/NS 1 GM/250 ML 1 GM/250 ML BAG IV SCH ×2 (11:13→22:51)
[2017-04-29] MEDS: D5/0.45NS 1,000 ML IV SCH (11:27)
--- NOTE | 2017-04-29 13:22 | Progress Note ---
Assessment and Plan 56 old -[place] male with past medical history significant for esophageal cancer on hospice care was admitted for the management of sepsis Sepsis: Improving. No more fever or - Patient is on IV antibiotics and IV fluids - Lactic acidnow normal - He is a hospice patient and if his daughter agrees we can send him to halfway with hospice and can finish his antibiotics Esophageal cancer - Patient was on hospice care, and the daughter said she will take him home. Malnutrition - Nutrition consult, speech evaluation Acute metabolic encephalopathy - Supportive care, treat his underlying condition Hypercalcemia - due malignancy - continue with IV fluids Hyperkalemia: - supplement DVT prophylaxis -Lovenox Disposition - Possible discharge to SNF with hospice care. Prognosis - poor CodeStatus - DO NOT RESUSCITATE/DO NOT INTUBATE Subjective Date of service: 04/29/17 Principal diagnosis: Advnace esophagial cancer Interval history: still c/o pain in the abdomen and weakness Objective - Constitutional Vitals: Vital Signs - 12hr 04/29/17 04/29/17 04/29/17 02:48 03:18 05:48 Temperature Pulse Rate Respiratory 21 16 19 Rate Blood Pressure O2 Sat by Pulse Oximetry 04/29/17 04/29/17 07:24 09:15 Temperature 99.0 F Pulse Rate 109 H Respiratory 16 Rate Blood Pressure 110/73 O2 Sat by Pulse 97 99 Oximetry General appearance: Present: no acute distress, cachectic, other (very weak) - EENT Eyes: PERRL, EOM intact - Neck Neck: supple, normal ROM - Respiratory Respiratory effort: normal Respiratory: bilateral: diminished - Cardiovascular Rhythm: regular Heart Sounds: Present: S1 & S2. Absent: gallop, rub Extremities: pulses intact, No edema, normal color, Full ROM - Gastrointestinal General gastrointestinal: Present: soft, non-tender, non-distended, normal bowel sounds - Integumentary Integumentary: clear, warm, dry - Musculoskeletal Musculoskeletal: 1, strength equal bilaterally - Neurologic Neurologic: moves all extremities - Psychiatric Psychiatric: appropriate mood/affect - Labs CBC & Chem 7: 04/29/17 04:18 04/29/17 04:18 Labs: Abnormal lab results 04/28/17 04/28/17 04/29/17 Range/Units 12:32 17:00 04:18 Hgb 9.5 L (11.8-15.2) gm/dl Hct 29.6 L (35.5-45.6) % MCV 81 L (84-94) fl MCH 26 L (28-32) pg RDW 17.4 H (13.2-15.2) % Lymph % (Auto) 10.7 L (13.4-35.0) % [place] % (Auto) 8.8 H (0.0-7.3) % Lymph # 1.0 L (1.2-5.4) K/mm3 Seg Neutrophils % 77.7 H (40.0-70.0) % Sodium (137-145) mmol/L Potassium (3.6-5.0) mmol/L Carbon Dioxide (22-30) mmol/L POC Glucose 112 H 116 H (70-105) Calcium (8.4-10.2) mg/dL 04/29/17 04/29/17 Range/Units 04:18 11:20 Hgb (11.8-15.2) gm/dl Hct (35.5-45.6) % MCV (84-94) fl MCH (28-32) pg RDW (13.2-15.2) % Lymph % (Auto) (13.4-35.0) % [place] % (Auto) (0.0-7.3) % Lymph # (1.2-5.4) K/mm3 Seg Neutrophils % (40.0-70.0) % Sodium 136 L (137-145) mmol/L Potassium 3.2 L (3.6-5.0) mmol/L Carbon Dioxide 20 L (22-30) mmol/L POC Glucose 110 H (70-105) Calcium 12.6 H* (8.4-10.2) mg/dL
[2017-04-29] MEDS: LOVENOX SUB-Q SCH (22:50)
[2017-04-30] MEDS: DILAUDID IV PRN ×5 (02:24→19:43)
[2017-04-30] MEDS: ZOSYN/NS 4.5GM/100ML 4.5 GM/100 ML VIAL IV SCH ×2 (05:32→15:05)
[2017-04-30] MEDS: D5/0.45NS 1,000 ML IV SCH (05:35)
[2017-04-30] MEDS: VANCOMYCIN/NS 1 GM/250 ML 1 GM/250 ML BAG IV SCH (09:47)
[2017-04-30] MEDS: MS CONTIN ER PO SCH (10:06)
[2017-04-30] MEDS ORDERED: NACL 0.9% 1000 ML 2,000 ML IV ONE (11:40)
[2017-04-30 11:42] LABS: Anion Gap 22 mmol/L; BUN/Creatinine Ratio 9; Blood Urea Nitrogen 9 mg/dL (9-20); Carbon Dioxide 17 mmol/L (22-30); Chloride 103.8 mmol/L (98-107); Glucose 103 mg/dL (75-100); Potassium 3.4 mmol/L (3.6-5.0); Sodium 139 mmol/L (137-145)
[2017-04-30 11:46] LABS: Calcium 12.6 mg/dL (8.4-10.2)
--- NOTE | 2017-04-30 11:48 | Discharge Summary ---
Providers - Providers Date of Admission: 04/25/17 07:11 Attending physician: LUDY CARTER MD 04/26/17 11:21 Speech Therapy Evaluation and Treat [CONS] Routine Reason For Exam: difficulty of swallowing 04/26/17 12:34 Consult to Dietitian/Nutrition [CONS] Routine Physician Instructions: Reason For Exam: Reason for Consult: Malnutrition Primary care physician: [employer]PER[employer] Hospitalization Reason for admission: sepsis Condition: Stable Hospital course: 56 YO Male with currently on Hospice service for Esophageal Cancer, Severe Malnutrition. Pt is DNR. Pt is unable to provide history, but history is taken from daughter over the phone. per daughter, pt had become increasingly confused and weak over the past 3 days, with worsening symptoms overnight. Pt was found by daughter to be more confused today. EMS was notified. Pt was found to be lethargic on exam and was treated with Narcan 1mg, with mild improvement in symptoms, and transported to [facility] for evaluation. Pt seen and evaluated in ED and found to have evidence of sepsis, and hypercalcemia. Pt has poor prognosis. Pt status discussed with daughter. Awaiting hospice revocation. Pt daughter states that she is unable to care for patient at home due to her job, and her current hospice company does not have any vacant beds in their inpatient facility. Hospice service notified. Pending receipt of revocation form so patient can be admitted for further care, if daughter decides. Pt daughter states that she has to notify other family members to get their input. Patient was noted to be septic possibly secondary to urinary tract infection with on the line and possible aspiration pneumonia he was started on antibiotics with cultures are revealing. I did discuss about possible lupus and the patient and assisted which the daughter had refused due to her prior experience working on one of those facilities. Mother agreeable returning with hospice despite multiple fluids patient's calcium mildly improved only. A fluids with Lasix omayra was given also to help improve. Marinol was given to help with appetite. Extensive discussion was had with the daughter about end of life management as she does have any questions despite [place] to be on hospice. She is agreeable and the patient is also agreeable with home hospice. Sepsis: Secondary to aspiration pneumonitis and acute cystitis Esophageal cancer Malnutrition-Mild Acute complaints cystitis Aspiration pneumonitis Acute metabolic encephalopathy- resolved Hypercalcemia- due malignancy Hyperkalemia: Disposition: DC-50 TO HOSPICE (HOME) Time spent for discharge: 35 mins Core Measure Documentation - Palliative Care Palliative Care/ Comfort Measures: Hospice Care - Core Measures Any of the following diagnoses?: none - VTE Discharge Requirements Deep Vein Thrombosis/Pulmonary Embolism Present on Admission: Yes Exam - Physical Exam Narrative exam: VITAL SIGNS: Reviewed. GENERAL: The patient appeared weak and cachectic. Vital signs as documented. HEAD: No signs of head trauma. Temporal wasting EYES: Pupils are equal. Extraocular motions intact. EARS: Hearing grossly intact. MOUTH: Oropharynx is normal. NECK: No adenopathy, no JVD. CHEST: Chest with right-sided diminished breath sounds. No wheezes, rales, or rhonchi. CARDIAC: Regular rate and rhythm. S1 and S2, without murmurs, gallops, or rubs. VASCULAR: No Edema. Peripheral pulses normal and equal in all extremities. ABDOMEN: Soft, without detectable tenderness. No sign of distention. No rebound or guarding, and no masses palpated. Bowel Sounds normal. MUSCULOSKELETAL: Good range of motion of all major joints. Extremities without clubbing, cyanosis or edema. NEUROLOGIC EXAM: Awake but lethargic although improved from admission per patient and family and oriented x 3. No focal sensory or strength deficits. Speech normal. Follows commands. PSYCHIATRIC: Mood normal. SKIN: No rash or lesions. - Constitutional Vitals: Temp Pulse Resp BP Pulse Ox 98.9 F 113 H 20 118/80 96 04/30/17 08:57 04/30/17 08:57 04/30/17 08:57 04/30/17 08:57 04/30/17 08:57 Plan Activity: advance as tolerated, fall precautions Diet: advance as tolerated Special Instructions: home hospice Follow up with: PRIMARY CARE, [Primary Care Provider] - 3-5 Days Prescriptions: Dronabinol [Marinol] 10 mg PO QDAY #30 capsule Levofloxacin [Levaquin] 750 mg PO QDAY #7 tablet Morphine [Morphine TAB] 15 mg PO Q6H 14 Days tablet Morphine Concentrate [Roxanol Conc 20 MG/ML ORAL LIQ] 20 mg PO Q4HR PRN 14 Days oral.liqd PRN Reason: Pain
[2017-04-30] MEDS ORDERED: LASIX IV ONE (12:00)
[2017-04-30 17:03] VITALS: BP 125/63
== END 2017-04-30 19:45 | disposition hospice, home (50) | DRG 871 ==
LOC: ED 20:55 → 3A 04-25 07:11
PROVIDERS: ADMIT Internal Medicine; ATTEND Internal Medicine
DX: A41.9 Sepsis, unspecified organism (principal); G93.41 Metabolic encephalopathy; J69.0 Pneumonitis due to inhalation of food and vomit; E43 Unspecified severe protein-calorie malnutrition; N30.00 Acute cystitis without hematuria; Z66 Do not resuscitate; E83.52 Hypercalcemia; M32.9 Systemic lupus erythematosus, unspecified; E87.5 Hyperkalemia; Z85.01 Personal history of malignant neoplasm of esophagus; Z68.22 Body mass index [BMI] 22.0-22.9, adult
CPT/HCPCS: 36415; 70450; 71010; 72125; 74176; 80048; 80053; 80202; 80307; 80320; 81001; 82140; 82330; 82550; 82962; 83735; 84443; 84484; 85025; 85610; 85730; 87086; 93005; 93010; 96365; 96366; 96367; 96372; 96375; 99406; G0480; J0630; J0696; J1170; J1650; J1940; J2060; J2270; J2405; J2430; J2543; J3370; J3480; J3486; J7030; J7050